=== PATIENT | female | born 1995 | race Caucasian/White ===

== ENCOUNTER 2024-12-09 18:24 | Emergency (ER) | payer SELFPAY ==
[2024-12-09 18:32] VITALS: BP 100/71
[2024-12-09 18:54] LABS: % Basophils 0.6 % (0-2); % Eosinophils 0.8 % (0-6); % Immature Granulocytes 0.2 % (0-0.5); % Lymphocytes 27.5 % (20.5-51.1); % Monocytes 5.3 % (1.7-9.3); % Neutrophils 65.6 % (42.2-75.2); Absolute Basophils 0.1 10^3/uL (0-0.2); Absolute Eosinophils 0.1 10^3/uL (0-0.7); Absolute Lymphocytes 2.7 10^3/uL (1.2-3.4); Absolute Monocytes 0.5 10^3/uL (0.1-0.6); Absolute Neutrophils 6.3 10^3/uL (1.4-6.5); Hematocrit 40.4 % (37.0-47.0); Hemoglobin 13.7 g/dL (12.0-16.0); Mean Corp Hgb Conc. 33.9 g/dL (33.0-37.0); Mean Corpuscular Hgb 29.2 pg (27.0-31.0); Mean Corpuscular Volume 86.1 fL (81.0-99.0); Mean Platelet Volume 10.6 fL (7.4-10.4); Nucleated Red Blood Cells % 0 %; Platelet Count 295 10^3/uL (130-400); Red Blood Cell Count 4.69 10^6/uL (4.20-5.40); Red Cell Dist. Width 13.6 % (11.5-14.5); White Blood Cell Count 9.7 10^3/uL (4.8-10.8)
[2024-12-09 19:10] LABS: ALT (SGPT) 14 U/L (0-35); AST (SGOT) 24 U/L (14-36); Albumin 4.8 g/dl (3.5-5.0); Alkaline Phosphatase 49 U/L (38-126); Blood Urea Nitrogen 14 mg/dl (7-17); Calcium 9.3 mg/dl (8.4-10.2); Carbon Dioxide 22 mmol/L (22-30); Chloride 106 mmol/L (98-107); Glucose 82 mg/dl (70-99); Potassium 3.6 mmol/L (3.5-5.1); Sodium 138 mmol/L (135-145); Total Bilirubin 0.6 mg/dl (0.2-1.3); Total Protein 7.4 g/dl (6.3-8.2); eGFR > 60.00
--- NOTE | 2024-12-09 21:01 | ED.GENMED ---
History of Present Illness
General
Chief Complaint: Fever
Source: patient
Exam Limitations: none
Time Seen by Provider: 12/09/24 20:53
Nursing documentation reviewed up to this point in time: agreed with
History of Present Illness
History of Present Illness:
Patient is a 29-year-old female presenting to the emergency department with vaginal irritation. She states that she took a tampon out today which she believes was there since her menstrual cycle last month. She states that the tampon had a very
foul odor. She has been noticing vaginal burning and irritation as well as dysuria recently. She feels if she might have a yeast infection.
In addition�patient states this morning she woke up covered in sweat and was having intermittent chest pains yesterday. These were not exertional or pleuritic in nature. Patient denies any known fever. She has had no abdominal pain. No rash.
Patient is sexually active with 1 partner. No recent unprotected sex. Patient does not have any particular concern for STI/STDs today.
Past History
Past History
ED Past Medical History: None
Social History
Tobacco: Non-smoker
Alcohol: None
Drug: None
Review of Systems
Review of Systems
Allergies reviewed?: Yes
All Other Systems: ROS reviewed and negative except as documented in HPI and ROS
Phy Exam
Physical Exam
Physical Exam:
Vitals: Patient's vital signs are stable. Afebrile
General: Patient is very well appearing, no acute distress. Nontoxic appearing
Skin: Warm and dry, no rashes or lesions
Head: Normocephalic, atraumatic
Eyes: Sclera nonicteric.
Throat: Protecting airway
Neck: Normal ROM, no cervical spine tenderness, no meningismus
Cardiac: Regular rate and rhythm, no murmurs.
Pulm: Normal respiratory effort, no wheezes, rales, rhonchi heard on exam.
Abdomen: Abdomen soft and nontender. No rebound tenderness or guarding.
Pelvic: External genitalia normal appearing without lesions, ulcerations, or adenopathy. Vaginal vault without lesions or ulcerations. Blood noted in vaginal vault. Mild bleeding from cervical os. Cervix appears normal to inspection without
lesions. No visualized foreign body. No cervical motion tenderness on bimanual exam.
Extremities: No evidence of cyanosis or edema. Palpable DP pulses
Neuro: AAOx3. Grossly intact
Psychiatric: Normal affect.
Course
Orders/Labs/Results
Orders:
Orders
12/09/24 18:45
Complete Blood Count/With Diff Urgent
Comprehensive Metabolic Panel Urgent
12/09/24 21:02
Test Result ONCE
12/09/24 21:04
Electrocardiogram (*1) Urgent
Reason for Study: Chest Pain
EKG- Treatment ONCE
12/09/24 21:36
Beta Hcg Urine Qualitative Screen [HCG, Urine Qualitative Screen] Urgent
Date Specimen was Collected: 12/09/24
Time Specimen was Collected: 21:34
Urinalysis Reflex To Culture Urgent
Date Specimen was Collected: 12/09/24
Time Specimen was Collected: 21:34
Urine Microscopic Reflex Cult Urgent
Chlamydia/GC by PCR Urgent
[place] Source: Urine
Specimen Description:
Source:: URINE
Date Specimen was Collected: 12/09/24
Time Specimen was Collected: 21:34
Urine Culture Urgent
[place] Source: U
Specimen Description:
Date Specimen was Collected: 12/09/24
Time Specimen was Collected: 21:34
12/09/24 22:48
MetroNIDAZOLE [Flagyl] 500 mg PO NOW STA
Abnormal Lab Results
12/09/24 12/09/24
18:45 21:36
MPV 10.6 H fL
(7.4-10.4)
Urine Ketones 1+ A
(Negative)
Ur Occult Blood Reflex 4+ A
(Negative)
Leukocyte Esterase Rfl 1+ A
(Negative)
Urine RBC 3-6 A /HPF
(0-2)
Urine WBC (Reflex) 21-25 A /HPF
(0-5)
Urine Bacteria (Reflex) Few A
(Negative)
Urine Albumin (Reflex) 1+ A
(Neg - Trace)
12/09/24 18:45
12/09/24 18:45
Vital Signs
Initial and Last Documented VS:
Initial Vital Signs
Temp Pulse Resp BP Pulse Ox
98.9 F 58 19 100/71 100
12/09/24 18:32 12/09/24 18:32 12/09/24 18:32 12/09/24 18:32 12/09/24 18:32
Last Documented Vital Signs
Temp Pulse Resp BP Pulse Ox
98.9 F 48 18 129/86 100
12/09/24 18:32 12/09/24 21:43 12/09/24 21:43 12/09/24 21:43 12/09/24 21:43
MDM/Problems Addressed
Differential Diagnosis Includes:
Not limited to: Bacterial vaginosis, vaginal candidiasis, Chlamydia, UTI, retained foreign body, etc
MDM/Problems Addressed:
29-year-old female presenting with vaginal irritation and malodorous discharge. Patient placed have removed a tampon that had been there for 1 month. She has no fever or chills. No abdominal pain. No dysuria. No dyspareunia. No current concern
for STDs. She is currently on her menstrual cycle. Vital signs as above�she is afebrile. Physical exam as above. Patient is very well-appearing, in no apparent distress. She is nontoxic-appearing. She has no rash. Abdomen is soft and
nontender throughout. Pelvic exam without any acute findings.
Labs obtained in triage without any significant abnormalities. Will send UA. Did send GC/chlamydia swabs. History consistent with possible bacterial vaginosis however hard to appreciate on exam given patient currently on her menstrual cycle. No
evidence of systemic infection. No purulent discharge or evidence of acute bacterial infection on pelvic exam.
Update: Urine somewhat equivocal for infection although possible contamination given multiple squamous cells. She is not experiencing any urinary symptoms at this time. Discussed with petr hold antibiotics for UTI pending culture. Patient
remains well and comfortable appearing. Plan to treat for suspected BV. Advised to follow closely with [facility]. Very strict return precautions discussed including any signs of infection. Patient verbalized understanding and comfortable with plan.
Chronic conditions affecting care:
N/A
Acute Exacerbation and/or Progression of Chronic Illness:
N/A
*Pulse Oximetry
Patient hypoxic: no
*EKG
Interpreted by ED Provider?: Yes
EKG Intrepretation Date: 12/09/24
Interpretation: abnormal
Comparison EKG: no comparison EKG present
Heart Rate: 46
Rate: bradycardiac
Rhythm: junctional
[place]: right axis deviation
Interval: normal QT interval
QRS Pattern: normal QRS
Ischemia: no ischemia
*Layaway Clerk Interpretation
Rate: Layaway Clerk- N/A
*Critical Care Note
Total Time (30-74mins, 75-104mins- exclusive of procedures): Not Applicable
ED Attending Note
-
Portions of this chart may have been created with voice recognition software.� Occasional wrong word or��sound alike� substitutions may have occurred due to the inherent limitations of voice recognition software.
Discharge Plan
Departure
Patient Disposition: Home (Routine Discharge)
Date of Disposition: 12/09/24
Time of Disposition: 22:48
Patient with high blood pressure during this ER visit?: No
Condition: Good
Covid-19: Not Applicable
Discharge Problem:
Vaginitis
Instructions: Vaginitis in adults, Bacterial vaginosis - ED discharge instructions
Prescriptions:
New
metronidazole 500 mg tablet
500 mg PO BID 7 Days Qty: 14 0RF
No Action
Vitamin Tablet
1 tab PO DAILY
fluoxetine 20 MG capsule
20 mg PO DAILY
amoxicillin 500 mg Tablet
500 mg PO BID
acetaminophen 325 mg Tablet
650 mg PO Q4HPRN PRN (Reason: mild pain) Qty: 0 0RF
ibuprofen 600 mg Tablet
600 mg PO Q6HPRN PRN (Reason: moderate pain/cramps) Qty: 0 0RF
Referrals:
UNKNOWN - PT DOES,NOT KNOW [Unknown Provider] -
Activity Restrictions/Additional Instructions:
RETURN TO THE EMERGENCY DEPARTMENT ANY FEVER, CHILLS, SEVERE ABDOMINAL PAIN, ABNORMAL VAGINAL BLEEDING/DISCHARGE, SEVERE PELVIC PAIN, RASH, OR ANY OTHER CONCERNS
- As discussed�a prescription for metronidazole has been sent to the pharmacy to treat for possible bacterial vaginosis. You should take this twice a day for the next 7 days. You cannot drink any alcohol while on this medication.
-We will contact you if any of your testing is found to be positive.
- Stay well-hydrated.
- Follow-up with [facility] in a week to ensure symptoms are improving/for further evaluation
Monitor your symptoms closely and return to the emergency department with any acute worsening/new symptoms or any other concerns
Interventions
Interventions:
*Risk Screen - Suicide Last Done: 12/09/24 18:34
*General Assessment Last Done: 12/09/24 18:34
*Neglect/Abuse Screening Last Done: 12/09/24 18:34
*ED- Fall Risk Assessment Last Done: 12/09/24 23:05
*ED COVID-19 Vaccine History Last Done: 12/09/24 23:05
*Nursing Disposition Last Done: 12/09/24 23:05
ED- Neurological Assessment Last Done: 12/09/24 23:05
Discharge Date and Time
Discharge Date/Time: 12/09/24 23:05
Print Language: TAMAZIGHT
[2024-12-09 21:43] VITALS: BP 129/86
[2024-12-09 21:49] LABS: HCG, Urine Qualitative Screen Negative
[2024-12-09 21:54] LABS: Urine Albumin 1+ (Neg - Trace); Urine Bilirubin Negative (Negative); Urine Character Slightly Cloudy (Clear); Urine Color Yellow; Urine Glucose Negative (Negative); Urine Ketone 1+ (Negative); Urine Leukocyte 1+ (Negative); Urine Nitrite Negative (Negative); Urine Occult Blood 4+ (Negative); Urine Urobilinogen Negative (Neg - 1+)
[2024-12-09 22:22] LABS: Urine Bacteria Few (Negative); Urine Mucus Moderate; Urine Squamous Cell >30 /LPF (Few); Urine White Cell 21-25 /HPF (0-5)
== END 2024-12-09 23:05 | disposition home or self-care (01) ==
LOC: EMR 18:24
PROVIDERS: Emergency Medicine; Physician Assistant; EMERGENCY PHYSICIAN Emergency Medicine; FAMILY PHYSICIAN Internal Medicine
DX: N76.0 Acute vaginitis (principal)
CPT/HCPCS: 99284; 80053; 81003; 81015; 81025; 81513; 85025; 87086; 87481; 87491; 87591; 87661; 93005